=== PATIENT | male | born 1945 | race Caucasian/White ===

== ENCOUNTER 2016-12-18 13:25 | Emergency (ER) | payer OTHER, MEDICARE ==
[~2016-12-18] VITALS: Ht 170.2 cm; Wt 84.8 kg
[~2016-12-18 13:25] MED LIST: AGM875T PO; CYCL10TA9 PO; GMFB600T PO; HYDR-34 PO; HYDR1CAP2 PO; MELO-195 PO; METH4TAB PO; OXYC-272 PO; PARO10TA21 PO; SIMV80TA3 PO
[2016-12-18] MEDS ORDERED: DEXA4TAB (13:52)
[2016-12-18] MEDS ORDERED: ONDA8TAB13 (13:52)
[2016-12-18] MEDS ORDERED: FOLI1TAB24 (13:52)
[2016-12-18] MEDS ORDERED: HYDR-3812 (13:52)
[2016-12-18 13:55] LABS: BASOPHILS % (AUTO) 0 % (0-10); EOSINOPHILS % (AUTO) 0 % (0-10); LYMPHOCYTES # (AUTO) 0.3 X 10^3 (1.0-4.0); LYMPHOCYTES % (AUTO) 3 % (12-44); MEAN CORPUSCULAR HEMOGLOBIN 30 PG (25-34); MEAN CORPUSCULAR HGB CONC 34 G/DL (32-36); MEAN CORPUSCULAR VOLUME 87 FL (80-99); MEAN PLATELET VOLUME 9.3 FL (7.4-10.4); MONOCYTES # (AUTO) 0.4 X 10^3 (0.0-1.0); MONOCYTES % (AUTO) 5 % (0-12); NEUTROPHILS # (AUTO) 8.3 X 10^3 (1.8-7.8); NEUTROPHILS % (AUTO) 92 % (42-75); PLATELET COUNT 216 10^3/uL (130-400); RED BLOOD COUNT 5.68 10^6/uL (4.35-5.85); RED CELL DISTRIBUTION WIDTH 13.2 % (10.0-14.5)
[2016-12-18 14:10] LABS: ALBUMIN 3.1 G/DL (3.2-4.5); BILIRUBIN,TOTAL 1.7 MG/DL (0.1-1.0); CALCIUM 9.1 MG/DL (8.5-10.1); CREATININE SERUM 1.3 MG/DL (0.60-1.30); POTASSIUM 4.3 MMOL/L (3.6-5.0); TOTAL PROTEIN 6.6 G/DL (6.4-8.2)
--- NOTE | 2016-12-18 14:16 | Diagnostic Imaging Report ---
INDICATION: Pain. Pleural effusion. FINDINGS: Single view of the chest shows normal heart size and vascularity. There is right basilar atelectasis with a right-sided effusion at the right lung base. There is an apical pneumothorax on the left estimated to be less than 10%. A drainage catheter is seen on the right. IMPRESSION: There is a right-sided hydropneumothorax. The left lung is clear. Dictated by: Dictated on workstation # [id number]
--- NOTE | 2016-12-18 14:17 | Diagnostic Imaging Report ---
INDICATION: [id number] adenocarcinoma. Abdominal pain and distention for three days. FINDINGS: Supine views of the abdomen show a nonspecific nonobstructive bowel gas pattern. There may be a mild ileus present. No bowel wall edema is seen. No free intraperitoneal air is evident. No mass or calculus is seen. There is no acute bony abnormality. IMPRESSION: Probable mild ileus with no other acute abnormality seen. Dictated by: Dictated on workstation # [id number]
[2016-12-18 14:19] LABS: NEUTROPHILS % (MANUAL) 93 %
[2016-12-18 14:20] LABS: BAND NEUTROPHILS 1 %; BASOPHILS % (MANUAL) 0 %; EOSINOPHILS % (MANUAL) 0 %; LYMPHOCYTES % (MANUAL) 4 %
[2016-12-18] MEDS ORDERED: NS IV 1000 ML 1,000 ML IV SCH (15:00)
[2016-12-18] MEDS ORDERED: HYDROmorphone (DILAUDID) 2 MG/ML VIAL IVP ONE (15:15)
--- NOTE | 2016-12-18 15:29 | ED General ---
General Chief Complaint: Abdominal/GI Problems Stated Complaint: ABD PAIN/DISTENDED Nursing Triage Note: PT TO ED 10 W/ C/O ABD PAIN ET DISTENTION ONSET SINCE HAVING CHEMO LAST WEEK IN [place]. DOES REPORT SOME NAUSEA ET CONSTIPATION. NO OTHER C/O VOICED Nursing Sepsis Screen: No Definite Risk Source of Information: Patient Exam Limitations: No Limitations History of Present Illness Time Seen by Provider: 15:22 Initial Comments The patient is a 71-year-old white male with lung cancer. He has been receiving chemotherapy in [place] His last dose of chemotherapy was last week. He has had an implanted catheter for the purpose of draining a pleural effusion which they normally do every other day. He reports that over the last week he has had considerable distention and subsequent pain in his abdomen. His appetite has been very poor. It is been several days since a bowel movement and he urinates infrequently. Timing/Duration: 1 Week Associated Systoms: Loss of Appetite Malaise Nausea/Vomiting Shortness of Air Weakness Allergies and Home Medications Allergies Coded Allergies: No Known Drug Allergies (Unverified , 09/21/10) Home Medications Dexamethasone 4 Mg Tablet #6 (Reported) Folic Acid 1 Mg Tablet #30 (Reported) Hydrocodone/Acetaminophen 1 Each Tablet #50 (Reported) Ondansetron 8 Mg Tab.rapdis #60 (Reported) Constitutional: other (chronically ill-appearing) EENTM: no symptoms reported Respiratory: no symptoms reported Cardiovascular: no symptoms reported Gastrointestinal: abdominal pain loss of appetite Genitourinary: no symptoms reported Musculoskeletal: no symptoms reported Skin: no symptoms reported Psychiatric/Neurological: No Symptoms Reported Hematologic/Lymphatic: No Symptoms Reported Past Vzcjhbo-Nbzgxi-Jyxmkt Hx Patient Social History Alcohol Use: Denies Use Recreational Drug Use: No Smoking Status: Former Smoker Recent Foreign Travel: No Contact w/Someone Who Travel: No Recent Infectious Disease Expo: No Recent Hopitalizations: No Immunizations Up To Date Date of Influenza Vaccine: Aug 16, 2013 Surgeries HX Surgeries: Yes (BACK SURGERY) Surgeries: Adenoidectomy, Tonsillectomy Respiratory Hx Respiratory Disorders: No Cardiovascular Hx Cardiac Disorders: No Neurological Hx Neurological Disorders: No Reproductive System Hx Reproductive Disorders: No Genitourinary Hx Genitourinary Disorders: No Gastrointestinal Hx Gastrointestinal Disorders: No Musculoskeletal Hx Musculoskeletal Disorders: Yes (LUMBAR STENOSIS) Endocrine Hx Endocrine Disorders: No HEENT HX ENT Disorders: No Cancer Hx Cancer: Yes (NON SMALL CELL ADENOCARCINOMA) Psychosocial Hx Psychiatric Problems: No Blood Transfusions Hx Blood Disorders: No Physical Exam Vital Signs Vital Sign - Last 12Hours 12/18/16 13:29 Temp 98.6 Pulse 119 Resp 28 B/P 138/79 Pulse Ox 95 O2 Delivery Room Air Capillary Refill : Less Than 3 Seconds General Appearance: Moderate Distress Eyes: Bilateral Eye Normal Inspection HEENT: Normal ENT Inspection Neck: Normal Inspection Respiratory: Other (dullness to percussion right base) Cardiovascular: Regular Rate, Rhythm Gastrointestinal: Abnormal Bowel Sounds (decreased) Distended Tenderness ( generalized tenderness to palpation) Back: Normal Inspection No CVA Tenderness No Vertebral Tenderness Extremity: Normal Capillary Refill Normal Inspection Normal Range of Motion Non Tender No Calf Tenderness No Pedal Edema Neurologic/Psychiatric: Alert Oriented x3 No Motor/Sensory Deficits Normal Mood/Affect Skin: Normal Color Warm/Dry Lymphatic: No Adenopathy Progress/Results/Core Measures Results/Orders Lab Results Laboratory Tests Test 12/18/16 13:31 Range/Units Alanine Aminotransferase (ALT/SGPT) 17 0-55 U/L Albumin 3.1 L 3.2-4.5 G/DL Alkaline Phosphatase 136 40-136 U/L Anion Gap 12 5-14 MMOL/L Aspartate Amino Transf (AST/SGOT) 12 5-34 U/L BUN/Creatinine Ratio 18 Band Neutrophils 1 % Basophils # (Auto) 0.0 0.0-0.1 10^3/uL Basophils % (Manual) 0 % Basophils (%) (Auto) 0 0-10 % Blood Morphology Comment NORMAL Blood Urea Nitrogen 23 H 7-18 MG/DL Calcium Level 9.1 8.5-10.1 MG/DL Carbon Dioxide Level 25 21-32 MMOL/L Chloride Level 95 L 98-107 MMOL/L Creatinine 1.30 0.60-1.30 MG/DL Eosinophils # (Auto) 0.0 0.0-0.3 10^3/uL Eosinophils % (Manual) 0 % Eosinophils (%) (Auto) 0 0-10 % Estimat Glomerular Filtration Rate 55 Glucose Level 181 H 70-105 MG/DL Hematocrit 49 40-54 % Hemoglobin 17.0 13.3-17.7 G/DL Lymphocytes # (Auto) 0.3 L 1.0-4.0 X 10^3 Lymphocytes % (Manual) 4 % Lymphocytes (%) (Auto) 3 L 12-44 % Mean Corpuscular Hemoglobin 30 25-34 PG Mean Corpuscular Hemoglobin Concent 34 32-36 G/DL Mean Corpuscular Volume 87 80-99 FL Mean Platelet Volume 9.3 7.4-10.4 FL Monocytes # (Auto) 0.4 0.0-1.0 X 10^3 Monocytes % (Manual) 2 % Monocytes (%) (Auto) 5 0-12 % Neutrophils # (Auto) 8.3 H 1.8-7.8 X 10^3 Neutrophils % (Manual) 93 % Neutrophils (%) (Auto) 92 H 42-75 % Platelet Count 216 130-400 10^3/uL Potassium Level 4.3 3.6-5.0 MMOL/L Red Blood Count 5.68 4.35-5.85 10^6/uL Red Cell Distribution Width 13.2 10.0-14.5 % Sodium Level 132 L 135-145 MMOL/L Total Bilirubin 1.7 H 0.1-1.0 MG/DL Total Protein 6.6 6.4-8.2 G/DL White Blood Count 9.0 4.3-11.0 10^3/uL My Orders Orders-MAYDA LEWIS MD Cbc With Automated Diff (12/18/16 13:48) Comprehensive Metabolic Panel (12/18/16 13:48) Ua Culture If Indicated (12/18/16 13:48) Chest 1 View, Ap/Pa Only (12/18/16 13:48) Abdomen/Kub 1view (12/18/16 13:48) Manual Differential (12/18/16 13:31) Ns Iv 1000 Ml (Sodium Chloride 0.9%) (12/18/16 15:00) Hydromorphone Injection (Dilaudid Inject (12/18/16 15:15) Ct Abdomen/Pelvis W (12/18/16 15:12) Iohexol Injection (Omnipaque 350 Mg/Ml 1 (12/18/16 15:30) Ns (Ivpb) (Sodium Chloride 0.9% Ivpb Bag (12/18/16 15:30) Medications Given in ED Current Medications Medications Dose Ordered Sig/Ivon Route Start Time Stop Time Status Last Admin Dose Admin Hydromorphone HCl 0.5 mg ONCE ONCE IVP 12/18/16 15:15 12/18/16 15:16 DC 12/18/16 15:21 0.5 MG Iohexol 100 ml ONCE ONCE IV 12/18/16 15:30 12/18/16 15:31 DC 12/18/16 15:41 85 ML Sodium Chloride 100 ml ONCE ONCE IV 12/18/16 15:30 12/18/16 15:31 DC 12/18/16 15:41 80 ML Vital Signs/I&O Vital Sign - Last 12Hours 12/18/16 13:29 Temp 98.6 Pulse 119 Resp 28 B/P 138/79 Pulse Ox 95 O2 Delivery Room Air Blood Pressure Mean: 98 Departure Communication Progress Notes 1600 Dr. Zapien reports that there is a large amount of ascites in the abdomen without a clear cut liver abnormality or tumor mass. He has previously done a sonography guided thoracentesis in October. He also reports that a paracentesis could be performed for comfort sake while planning other measures for control. [address] Peterson the patient's primary care physician. She allowed that she would be in favor of anything that would be suitable to the patient's. 1620 discussed with the patient and his and they would be interested in this for palliation until they can get back to the [facility] facility. Accordingly I have arranged with Dr. Zapien that the patient should arrive at 0900 hours in the morning for a 10 00 target procedure. Impression Impression: Primary Impression: malignant ascites Additional Impression: known adenocarcinoma presumably of lung origin Disposition: 01 HOME, SELF-CARE Condition: Stable/Unchanged Departure-Patient Inst. Decision time for Depature: 16:38 Referrals: SOFIA PETERSON MD (PCP/Family) Primary Care Physician Patient Instructions: No Instuctions Given Add. Discharge Instructions: All discharge instructions reviewed with patient and/or family. Voiced understanding. Use the hydromorphone as necessary for pain. Return at 0900 to radiology department for paracentesis of the abdomen at approximately 10 00 Nothing by mouth after midnight Scripts [hYDROMORPHONE] No Conflict Check1 Mg QID #20 Prov:MAYDA LEWIS MD 12/18/16 MAYDA LEWIS MD Dec 18, 2016 15:29
[2016-12-18] MEDS ORDERED: IOHEXOL 350 MG/ML 100 ML (OMNIPAQUE 350) VIAL IV ONE (15:30)
[2016-12-18] MEDS ORDERED: NS 100 ML (IVPB) BAG IV ONE (15:30)
--- NOTE | 2016-12-18 16:35 | Diagnostic Imaging Report ---
PROCEDURE: CT abdomen and pelvis with contrast. TECHNIQUE: Multiple contiguous axial images were obtained through the abdomen and pelvis after administration of intravenous contrast. INDICATION: Abdominal distention. Malignant pleural effusion and ascites. COMPARISON: 10/23/2016. 85 mL of Omnipaque-350 is administered intravenously. FINDINGS: There is a tunneled pleural catheter placed in the right pleural cavity with the catheter tip above the level of the scan. The catheter extends superiorly and is within the anterior pleural space which contains air from trapped lung. There is moderate bilateral pleural effusion and bibasilar atelectasis in the lungs. There is pleural thickening and subpleural pulmonary irregular nodule along the lateral aspect of the right middle lobe measuring 2.9 x 1.2 cm concerning for a malignant nodule. This is larger compared to 10/23/2016. There is also a right paraesophageal lymph node measuring up to 1.3 cm in short axis in the lower chest compared to 0.8 cm on October 23, 2016. The liver, the spleen, the pancreas, the gallbladder, and the adrenal glands appear unremarkable. There is a large ascites seen. There is omental thickening in the upper anterior abdomen and enhancing peritoneal lining without significant nodularity. This is probably related to peritoneal carcinomatosis. There are minimally enlarged mesenteric lymph nodes seen. The abdominal aorta is normal in caliber. No para-aortic significantly enlarged lymph node is seen. The kidneys have symmetric enhancement and contrast excretion. There is no hydronephrosis. The urinary bladder appears unremarkable. The prostate is 5.3 cm in transverse dimension. The osseous structures demonstrate bridging syndesmophytes. There is fusion hardware anteriorly and on the left side with transpedicular screws at the L4-L5 level. No destructive osseous mass seen. IMPRESSION: 1. Large ascites with omental stranding and peritoneal lining enhancement suggestive of peritoneal carcinomatosis. 2. Bilateral moderate pleural effusions with bibasilar pulmonary atelectasis. Persistent right pneumothorax from incomplete expansion of the lung. 3. Enlarged irregular nodule along the lateral aspect of the right middle lobe, probably neoplastic. 4. A 1.3 cm lower thoracic right paraesophageal lymph node enlarged from the previous study. The findings were discussed with Dr. Orr by Dr. Zapien at the time of dictation. Dictated by: Dictated on workstation # [id number]
[2016-12-18] MEDS ORDERED: HYDROMORPHONE (16:41)
[2016-12-18 16:58] VITALS: BP 130/85
== END 2016-12-18 16:58 | disposition home or self-care (01) ==
LOC: EDUNIT# 13:25 → ER 13:28
DX: R18.0 Malignant ascites (principal); C34.90 Malignant neoplasm of unspecified part of unspecified bronchus or lung; J90 Pleural effusion, not elsewhere classified; R59.0 Localized enlarged lymph nodes; Z79.899 Other long term (current) drug therapy; Z87.891 Personal history of nicotine dependence
CPT/HCPCS: 36415; 71010; 74000; 74177; 80053; 85007; 85027; 96361; 96374

== ENCOUNTER → 2016-12-19 | Outpatient (CLI) | payer MEDICARE, OTHER ==
[~2016-12-19] VITALS: Ht 170.2 cm; Wt 84.8 kg
[~2016-12-19] MED LIST changes: +DEXA4TAB; +FOLI1TAB24; +HYDR-3812; +HYDROMORPHONE; +LIDOCAINE 1% INJ 20 ML (XYLOCAINE) VIAL INJ ONE; +ONDA8TAB13
--- OUTSIDE RECORDS SUMMARY | 2016-12-19 09:12 | XMS REPORT | Continuity of Care Document ---
Author Author [facility] Organization [facility] Address Unknown Phone Unavailable Care Team Providers Care Lye Bath Operator Name Role Phone SOFIA JOSHI MD PCP Insurance Providers Payer Name Policy Number Subscriber Name Relationship [employer] [id number] JoelAzucena Yovana 55 Life Partner [employer] [id number] Rik Evans 20 Self / Same As Patient Advance Directives Directive Response Recorded Date/Time Advance Directives Yes 12/18/16 1:29pm Health Care Power of Flatbed Owner Operator Yes 12/18/16 1:29pm Organ Donor Yes 12/18/16 1:29pm Resuscitation Status Full Code 12/18/16 1:29pm Chief Complaint and Reason for Visit Chief Complaint Abdominal/GI Problems Reason for Visit known adenocarcinoma presumably of lung origin malignant ascites Problems No problem information available. Medications Current Home Medications Medication Dose Units Route Directions Days/Qty Instructions Start Date Hydrocodone/Acetaminophen 1 Each 50 12/18/16 Folic Acid 1 Mg 30 12/18/16 Ondansetron 8 Mg 60 12/18/16 Dexamethasone 4 Mg 6 12/18/16 [Hydromorphone] 1 Mg Four Times Daily 20 12/18/16 Past Home Medications Medication Directions Ordered Status Meloxicam (Mobic) 15 Mg Tablet, 1 Each Oral Daily 09/21/10 Discontinued Acetaminophen/Hydrocodone Bitart 1 Ea Tablet, 1 - 2 Ea Oral Q6hr Prn Discontinued Cyclobenzaprine Hcl (Flexeril) 10 Mg Tablet, 1 Each Oral Three Times A Day And Prn 09/21/10 Discontinued Simvastatin 80 Mg Tablet, 80 Mg Oral Daily 09/21/10 Discontinued Methylprednisolone 4 Mg/Dose-Pack Tab.ds.pk, 0 Oral As Directed 02/03/11 Discontinued Amoxicillin/Clavulanate Potassium 1 Tab Tablet, 1 Tab Oral Twice A Day Discontinued Acetaminophen/Hydrocodone Bitart (Lorcet-Hd) 1 Each Capsule, 1 - 2 Each Oral Q 4 - 6 Hrs Prn 02/03/11 Discontinued Paroxetine Hcl 10 Mg Tablet, 10 Mg Oral Daily 10/01/12 Discontinued Gemfibrozil 600 Mg Tab, 600 Mg Oral Twice A Day 10/01/12 Discontinued Oxycodone Hcl/Acetaminophen 1 Tab Tablet, 1 - 2 Tab Oral Every 4HRS as needed 10/12/12 Discontinued Cyclobenzaprine Hcl (Flexeril) 10 Mg Tablet, 1 Each Oral Every 8HRS as needed 10/12/12 Discontinued Social History Social History Problem Response Recorded Date/Time Alcohol Use Denies Use 12/18/2016 1:29pm Recreational Drug Use No 12/18/2016 1:29pm Recent Foreign Travel No 12/18/2016 1:29pm Recent Infectious Disease Exposure No 12/18/2016 1:29pm Hospitalization with Isolation Denies 12/18/2016 1:29pm Smoking Status Former Smoker 12/18/2016 1:29pm Recent Hopitalizations No 12/18/2016 1:29pm Hospitalization with Isolation Denies 12/18/2016 1:29pm Query Response Start Date Stop Date Smoking Status Former Smoker Hospital Discharge Instructions No hospital discharge instructions. Plan of Care Discharge Date 12/18/16 4:58pm Disposition 01 HOME, SELF-CARE Condition at Discharge Stable/Unchanged Instructions/Education Provided No Instuctions Given Prescriptions See Medication Section Referrals SOFIA JOSHI MD - Primary Care Physician Additional Instructions/Education All discharge instructions reviewed with patient and/or family. Voiced understanding. Use the hydromorphone as necessary for pain. Return at 0900 to radiology department for paracentesis of the abdomen at approximately 10 00 Nothing by mouth after midnight Functional Status No functional status results. Allergies, Adverse Reactions, Alerts No known allergies. Immunizations No immunization records. Vital Signs Acute Vital Signs Vital Response Date/Time Temperature (Fahrenheit) 98.6 degrees F (97.6 - 99.5) 12/18/2016 1:29pm Temperature (Calculated Celsius) 37.18263 degrees C (36.4 - 37.5) 12/18/2016 1:29pm Temperature Source Tympanic 12/18/2016 1:29pm Pulse Rate (adult) 119 bpm (60 - 90) 12/18/2016 1:29pm Respiratory Rate 28 bpm (12 - 24) 12/18/2016 1:29pm O2 Sat by Pulse Oximetry 95 % (88 - 100) 12/18/2016 1:29pm Blood Pressure 138/79 mm Hg 12/18/2016 1:29pm Blood Pressure Mean 98 mm Hg 12/18/2016 1:29pm Pain Numeric Pain Scale 10-Worst Possible Pain 12/18/2016 3:21pm Height (Feet) 5 feet 12/18/2016 1:29pm Height (Inches) 7 inches 12/18/2016 1:29pm Height (Calculated Centimeters) 170.751838 cm 12/18/2016 1:29pm Weight (Pounds) 187 pounds 12/18/2016 1:29pm Weight (Calculated Kilograms) 84.030461 kilograms 12/18/2016 1:29pm Capillary Refill Capillary Refill Less Than 3 Seconds 12/18/2016 1:29pm Height 5 ft 7 in Weight 187 lb Body Mass Index 29.3 kg/m^2 Results Laboratory Results Test Name Result Units Flags Reference Collection Date/Time Result Date/ Time Comments White Blood Count 9.0 10^3/uL 4.3-11.0 12/18/2016 1:31pm 12/18/2016 1: 57pm Red Blood Count 5.68 10^6/uL 4.35-5.85 12/18/2016 1:31pm 12/18/2016 1: 57pm Hemoglobin 17.0 G/DL 13.3-17.7 12/18/2016 1:31pm 12/18/2016 1:57pm Hematocrit 49 % 40-54 12/18/2016 1:31pm 12/18/2016 1:57pm Mean Corpuscular Volume 87 FL 80-99 12/18/2016 1:31pm 12/18/2016 1: 57pm Mean Corpuscular Hemoglobin 30 PG 25-34 12/18/2016 1:31pm 12/18/2016 1: 57pm Mean Corpuscular Hemoglobin Concent 34 G/DL 32-36 12/18/2016 1:[facility] 12/2016 1:57pm Red Cell Distribution Width 13.2 % 10.0-14.5 12/18/2016 1:[facility] 2016 1:57pm Platelet Count 216 10^3/uL 130-400 12/18/2016 1:[facility] 12/18/2016 1:57pm Mean Platelet Volume 9.3 FL 7.4-10.4 12/18/2016 1:[facility] 12/18/2016 1: 57pm Neutrophils (%) (Auto) 92 % H 42-75 12/18/2016 1:[facility] 12/18/2016 1:57pm Lymphocytes (%) (Auto) 3 % L 12-44 12/18/2016 1:[facility] 12/18/2016 1:57pm Monocytes (%) (Auto) 5 % 0-12 12/18/2016 1:[facility] 12/18/2016 1:57pm Eosinophils (%) (Auto) 0 % 0-10 12/18/2016 1:[facility] 12/18/2016 1:57pm Basophils (%) (Auto) 0 % 0-10 12/18/2016 1:[facility] 12/18/2016 1:57pm Neutrophils # (Auto) 8.3 X 10^3 H 1.8-7.8 12/18/2016 1:[facility] 12/18/2016 1: 57pm Lymphocytes # (Auto) 0.3 X 10^3 L 1.0-4.0 12/18/2016 1:[facility] 12/18/2016 1: 57pm Monocytes # (Auto) 0.4 X 10^3 0.0-1.0 12/18/2016 1:[facility] 12/18/2016 1: 57pm Eosinophils # (Auto) 0.0 10^3/uL 0.0-0.3 12/18/2016 1:[facility] 12/18/2016 1 :57pm Basophils # (Auto) 0.0 10^3/uL 0.0-0.1 12/18/2016 1:[facility] 12/18/2016 1: 57pm Neutrophils % (Manual) 93 % 12/18/2016 1:[facility] 12/18/2016 2:20pm Band Neutrophils 1 % 12/18/2016 1:[facility] 12/18/2016 2:20pm Lymphocytes % (Manual) 4 % 12/18/2016 1:[facility] 12/18/2016 2:20pm Monocytes % (Manual) 2 % 12/18/2016 1:12/18/2016 2:20pm Eosinophils % (Manual) 0 % 12/18/2016 1:[facility] 12/18/2016 2:20pm Basophils % (Manual) 0 % 12/18/2016 1:[facility] 12/18/2016 2:20pm Blood Morphology Comment NORMAL 12/18/2016 1:12/18/2016 2: 20pm Sodium Level 132 MMOL/L L 135-145 12/18/2016 1: 12/18/2016 2:11pm Potassium Level 4.3 MMOL/L 3.6-5.0 12/18/2016 1:12/18/2016 2:11pm Chloride Level 95 MMOL/L L 98-107 12/18/2016 1: 12/18/2016 2:11pm Carbon Dioxide Level 25 MMOL/L 21-32 12/18/2016 1:12/18/2016 2: 11pm Anion Gap 12 MMOL/L 5-14 12/18/2016 1:[facility] 12/18/2016 2:11pm Blood Urea Nitrogen 23 MG/DL H 7-18 12/18/2016 1: 12/18/2016 2:11pm Creatinine 1.30 MG/DL 0.60-1.30 12/18/2016 1: 12/18/2016 2:11pm BUN/Creatinine Ratio 18 12/18/2016 1:[facility] 12/18/2016 2:11pm Estimat Glomerular Filtration Rate 55 12/18/2016 1:12/18/2016 2:11pm GFR INTERPRETIVE DATA UNITS FOR ESTIMATED GFR (eGFR): mL/min/1.73 M2 REFERENCE RANGE FOR ESTIMATED GFR (eGFR) eGFR NORMAL eGFR >60 MODERATELY DECREASED eGFR 30-59 SEVERLY DECREASED eGFR 15-29 KIDNEY FAILURE <15 (OR DIALYSIS) Glucose Level 181 MG/DL H 70-105 12/18/2016 1:[facility] 12/18/2016 2:11pm Calcium Level 9.1 MG/DL 8.5-10.1 12/18/2016 1:12/18/2016 2:11pm Total Bilirubin 1.7 MG/DL H 0.1-1.0 12/18/2016 1:31pm 12/18/2016 2:11pm Alkaline Phosphatase 136 U/L 40-136 12/18/2016 1:31pm 12/18/2016 2: 11pm Aspartate Amino Transf (AST/SGOT) 12 U/L 5-34 12/18/2016 1:31pm 2016 2:11pm Alanine Aminotransferase (ALT/SGPT) 17 U/L 0-55 12/18/2016 1:31pm 12/18 2:11pm Total Protein 6.6 G/DL 6.4-8.2 12/18/2016 1:31pm 12/18/2016 2:11pm Albumin 3.1 G/DL L 3.2-4.5 12/18/2016 1:31pm 12/18/2016 2:11pm Procedures No known history of procedures. Encounters Encounter Location Arrival/Admit Date Discharge/Depart Date Attending Provider Departed Emergency Room [facility] 12/18/16 1:28pm 12/18 4:58pm MAYDA LEWIS MD Recent Diagnosis
[2016-12-19 09:30] VITALS: BP 158/88
[2016-12-19 10:12] VITALS: BP 152/83
[2016-12-19 11:20] VITALS: BP 151/85
--- NOTE | 2016-12-19 12:50 | Diagnostic Imaging Report ---
EXAMINATION: Ultrasound-guided paracentesis. INDICATION: Ascites. CONSENT: Informed consent was obtained from the patient. The risks, benefits, potential complications and alternatives were reviewed and all questions answered to the patient's satisfaction. The patient's vital signs, cardiac rhythm, and pulse oximetry with observed throughout the procedure by qualified nursing personnel. Sedation/Medications: None.. FINDINGS: ascites. PROCEDURE: After sterile preparation and draping, 1% lidocaine was utilized for local anesthesia. Following sterile preparation and local anesthetic and using 2 D real-time ultrasound for guidance, a 8.5 Fr sheath on a trocar needle was introduced into the peritoneal fluid collection in the left lower quadrant from an anterior approach. Images of needle position documented. Initial fluid return was thin, serous fluid. The sheath was advanced into the deepest fluid pocket and a total of 4.5 liters of evy-colored fluid was then evacuated from the peritoneum without difficulty. No immediate complications. IMPRESSION: Successful ultrasound guided paracentesis. Dictated by: Dictated on workstation # [id number]
== END ==
LOC: RAD 09:06
PROVIDERS: ATTEND Internal Medicine
DX: R18.8 Other ascites (principal)
CPT/HCPCS: 49083